=== PATIENT | male | born 1970 ===

== ENCOUNTER 2023-03-21 10:12 | Emergency (ER) | payer BC, SELFPAY ==
[2023-03-21 10:20] VITALS: BP 138/47; PULSE 82; RESP 18; TEMP 36.3; O2SAT 94; BMI 46.8
--- NOTE | 2023-03-21 10:47 | CRLHL7_ITS ---
For Patients: As a result of the Cures Act, medical imaging exams and procedure reports are released immediately into your electronic medical record. You may view this report before your referring provider. If you have questions, please contact your health care provider. INDICATION: Left arm numbness TECHNIQUE: AP, lateral, and odontoid views of the cervical spine were obtained. COMPARISON: None available. FINDINGS: Vertebral bodies: The cervical vertebral body heights are grossly maintained with straightening of the normal cervical lordosis. There is no significant spondylolisthesis. Joints: There is mild degenerative disc disease with disc height loss and marginal osteophyte formation. There is mild to moderate degenerative change of the atlantoaxial joint. There is questionable mild widening of the left atlantoaxial interval seen on odontoid projection. Soft tissues: There is no significant prevertebral soft tissue swelling. IMPRESSION: [id number] degenerative changes of the cervical spine with minimal straightening of the normal cervical lordosis and disc height loss. Incidental note is made of mild widening of the left atlantoaxial interval on the odontoid projection which could represent rotatory fixation changes. Consider further evaluation with CT of the cervical spine for improved characterization. Correlate with history of pain upon head rotation. Dictated by Chepe Bajwa MD @ 03/21/2023 11:49:21 AM (Electronically Signed)
--- NOTE | 2023-03-21 11:11 | ED.NEUROSD ---
HPI - Neuro Symptoms/Deficit General Date Seen: 03/21/23 Chief Complaint: Neuro Symptoms/Altered Deficit Stated Complaint: L arm numb Time Seen by Provider: 03/21/23 10:17 Source: patient Mode of arrival: ambulatory Limitations: no limitations History of Present Illness HPI Narrative: Patient is a 52-year-old gentleman who is left-hand dominant, presents here with numbness, in his 4th and 5th fingers, his left hand, he woke up this morning, with the numbness, he describes a coming down from his elbow, but not above his elbow. He slept on it with his arm behind himself, and thinks this may have something to do with it. He has no motor weakness associated with this, it is maybe improved slight bit, but is still there. Denies any injury to his head, any speech issues, vision issues, denies any neck pain, leading up to, no history of malignancy, denies injury to his elbows, or falls. Related Data Previous Rx's Medication Instructions Recorded prednisone 20 mg tablet 20 mg PO BID #10 tabs 03/21/23 Allergies Allergy/AdvReac Type Severity Reaction Status Date / Time No Known Drug Allergies Allergy Verified 03/21/23 10:22 Review of Systems Status of ROS: Reports: 10 or more systems reviewed and unremarkable except as noted in History and below [facility] Social History Smoking Status: Former smoker Exam Narrative: Exam Narrative: Patient is a very nice gentleman seen in room 3, he is alert oriented follows my commands able to walk normally, non ataxic gait pattern. Heel toe testing were normal. 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 Sensation is altered over his ulnar area of his left fingers, there is no wasting of the hypothenar eminence, pulses are normal in his upper extremities, his neck has excellent full range of motion from 20 cm to 4 cm, lateral flexion, rotation are all normal no palpable tenderness over his C-spine, there is no evidence of lymphadenopathy in his axilla, or supraclavicular areas. Reflexes are +1/4 his biceps triceps and brachioradialis bilaterally Const: Vital Signs, click to edit/add: Vital Signs - 24 hr 03/21/23 10:20 Temperature 97.4 F L Pulse Rate [Right Pulse Oximeter] 82 Respiratory Rate 18 Blood Pressure [Ri ght Upper Arm] 138/47 L Pulse Oximetry 94 Oxygen Delivery Me thod Room Air Course Course Hospital Course: I discussed with him this is more likely a neurapraxia, is x-ray of the neck was normal, will put him on a little bit of prednisone with informed consent risks benefits given for this and he will follow-up if any ongoing concerns. He was comfortable this plan. We did discuss following up with Orthopedics if ongoing issues, and sometimes cubital tunnel surgery is helpful for this. Vital Signs Vital signs: Initial Vital Signs Temperature 97.4 F L 03/21/23 10:20 Temperature Source Temporal Artery Scan 03/21/23 10:20 Pulse Rate 82 03/21/23 10:20 Respiratory Rate 18 03/21/23 10:20 Blood Pressure 138/47 L 03/21/23 10:20 Blood Pressure Mean 77 03/21/23 10:20 Blood Pressure Position Sitting 03/21/23 10:20 Pulse Oximetry 94 03/21/23 10:20 Oxygen Delivery Method Room Air 03/21/23 10:20 Vital Signs Temperature 97.4 F L 03/21/23 10:20 Pulse Rate 82 03/21/23 10:20 Respiratory Rate 18 03/21/23 10:20 Blood Pressure 138/47 L 03/21/23 10:20 Pulse Oximetry 94 03/21/23 10:20 Oxygen Delivery Method Room Air 03/21/23 10:20 Temperature 97.4 F L 03/21/23 10:20 Pulse Rate 82 03/21/23 10:20 Respiratory Rate 18 03/21/23 10:20 Blood Pressure 138/47 L 03/21/23 10:20 Pulse Oximetry 94 03/21/23 10:20 Oxygen Delivery Method Room Air 03/21/23 10:20 MDM - Neuro Symptoms/Deficit MDM Narrative Medical decision making narrative: I discussed with him I do not think this is stroke, this was more like a neurapraxia secondary to pressure over his ulnar nerve, he does have a remote history of some neck issues, we will do an x-ray just to assess is disc spaces, and then likely send him home, some prednisone may help this in the short term. I will discuss this with him. Medical Records Attestation: I reviewed the patient's medical records. Imaging Data Cervical spine x-ray: Attestation: I have reviewed the pertinent imaging results. My impression: Normal cervical spine x-ray Radiologist's impression: atient: ARLYN LISA Facility:?[facility] Patient ID:?[id number] Site Patient ID:?[id number]. Site :?[id number] Study:?XRay Spine Cervical 3 VIEWS-03/21/2023 11:19:55 AM Ordering Physician:Padilla Phillip Final Report: INDICATION: Left arm numbness TECHNIQUE: AP, lateral, and odontoid views of the cervical spine were obtained. COMPARISON: None available. FINDINGS: Vertebral bodies: The cervical vertebral body heights are grossly maintained with straightening of the normal cervical lordosis. There is no significant spondylolisthesis. Joints: There is mild degenerative disc disease with disc height loss and marginal osteophyte formation. There is mild to moderate degenerative change of the atlantoaxial joint. There is questionable mild widening of the left atlantoaxial interval seen on odontoid projection. Soft tissues: There is no significant prevertebral soft tissue swelling. IMPRESSION: [id number] degenerative changes of the cervical spine with minimal straightening of the normal cervical lordosis and disc height loss. Incidental note is made of mild widening of the left atlantoaxial interval on the odontoid projection which could represent rotatory fixation changes. Consider further evaluation with CT of the cervical spine for improved characterization. Correlate with history of pain upon head rotation. Dictated by Chepe Bajwa MD @ 03/21/2023 11:49:21 AM (Electronic Signature) Please note that the patient has no pain at all with turning his head. And a normal examination Discharge Plan Discharge Clinical Impression: Ulnar neuropathy at elbow of left upper extremity Patient Disposition: Home, Self-Care Condition: Stable Instructions: Paresthesia (ED) Additional Instructions: I would expect this to improve slowly over the next few days, I do not think you can have lasting issue, avoidance of sleeping or twisting on the elbow, we will try some prednisone for the next 5 days to see we can improve the situation, be warned that it will increase her blood sugars, and also make you eat everything in sight and keeping up at night. Follow-up with primary care if ongoing signs and symptoms, occasionally if this is a chronic problem than there was actually surgery to correct this. Activity Level: No Restrictions Prescriptions: New prednisone 20 mg tablet 20 mg PO BID Qty: 10 0RF Follow Up/Referrals: Provider,Not a Local [Primary Care Provider] - Stand Alone Forms: PlaceFirst Info Instructions
[2023-03-21 11:55] VITALS: BP 135/73; PULSE 82; RESP 18; O2SAT 96
== END 2023-03-21 11:56 | disposition home or self-care (01) ==
PROVIDERS: Emergency Provider Family Medicine
DX: G56.22 Lesion of ulnar nerve, left upper limb (principal)
CPT/HCPCS: 72040; 99283